=== PATIENT | female | born 1945 | race Caucasian/White ===

== ENCOUNTER → 2016-10-11 | Outpatient (CLI) | payer OTHER ==
--- NOTE | 2016-10-11 16:07 | DI ---
MRI BRAIN SCAN WITHOUT AND WITH IV CONTRAST, 10/11/2016 12:58 PM: Clinical History: Expressive language disorder. Previous Exam: 07/12/2008. Sequences: Axial and sagittal T1 pre contrast and axial and coronal post contrast; axial T2 and FLAIR . Diffusion weighted images with ADC mapping are also performed. 20 mL of ProHance (279.3 mg/mL) was injected IV. The 4th, 3rd, and lateral ventricles are of normal size, shape, position, and contour for this patien t's age. There are multiple punctate periventricular white matter hyperintensities bilaterally that e xtend into the watershed territory, consistent with small vessel ischemic disease. This amount of isc hemic disease is appropriate for the patient's age. On the postcontrast scans, there is a 3-4 mm focu s of enhancement that is located just anterior to the region of the tip of the basilar artery. This p robably is a focus of enhancement related to the infundibulum, but because of its proximity to the ba silar tip, an aneurysm cannot entirely be excluded. An MR angiogram is recommended to verify that the re is no basilar tip aneurysm. Diffusion weighted imaging with ADC mapping is normal. There are no ex tracerebral mantels or shift of the midline structures. The paranasal sinuses are normal. Readin. There is no evidence of an acute or old infarct. There is small vessel ischemic disease. 2. Following contrast, there is a 3-4 mm focus of enhancement that is in proximity to the area of th e tip of the basilar artery. This most likely is a focus of enhancement in the infundibulum, but a ba silar tip aneurysm cannot be excluded. An MR angiogram of the [place] is recommended to see if this is indeed a basilar tip aneurysm. 3. Diffusion weighted imaging with ADC mapping is normal.
== END ==
LOC: MRI 12:52
PROVIDERS: ATTEND Family Medicine
DX: F80.1 Expressive language disorder (principal)
CPT/HCPCS: 70553

== ENCOUNTER → 2016-10-12 | Outpatient (CLI) | payer OTHER ==
--- NOTE | 2016-10-12 15:47 | DI ---
MR ANGIOGRAM OF THE NECK, 10/12/2016 12:50 PM: Clinical History: Expressive aphasia. Expressive language disorder. Previous Exam: None at this facility. Axial 2D TOF and axial 3D images are reconstructed into a 3D MIP format. Scans are performed from below the sternal notch to of the neck to the base of the skull without cont rast. The common carotid arteries are normal from their origins to the bifurcations. The internal and exter nal carotid arteries in the neck region are normal. The internal carotid arteries from the base of th e skull to the cavernous sinuses are also normal. Both vertebral arteries are visualized and are norm al. The right vertebral artery is the dominant vessel. READING: Normal MRI angiogram of the carotid and vertebral arteries.
== END ==
LOC: MRI 12:42
PROVIDERS: ATTEND Family Medicine
DX: F80.1 Expressive language disorder (principal)
CPT/HCPCS: 70547